=== PATIENT | male | born 1970 | race Caucasian/White ===

== ENCOUNTER 2018-03-02 17:51 | Observation (INO) | payer BC ==
[~2018-03-02] VITALS: Ht 182.9 cm; Wt 94.8 kg
[2018-03-02 18:33] LABS: BASOPHILS % 0.2 % (0.0-1.0); EOSINOPHILS % 0.3 % (0.0-6.0); HEMATOCRIT 44.1 % (38.2-49.6); HEMOGLOBIN 15.6 g/dL (14.0-18.0); LYMPHOCYTES # (AUTO) 2.1 (1.0-3.2); LYMPHOCYTES % 16.3 % (18.0-39.1); MEAN CORPUSCULAR HEMOGLOBIN 29.1 pg (28-32); MEAN CORPUSCULAR HGB CONC 35.4 g/dL (31-35); MEAN CORPUSCULAR VOLUME 82.1 fL (81-99); MONOCYTES # (AUTO) 0.7 (0.2-0.8); MONOCYTES % 5.6 % (4.4-11.3); NEUTROPHILS # (AUTO) 9.9 (2.1-6.9); NEUTROPHILS % 77.3 % (38.7-80.0); PLATELET COUNT 156 x10e3/uL (140-360); RED BLOOD COUNT 5.37 x10e6/uL (4.3-5.7); RED CELL DISTRIBUTION WIDTH 13.2 % (11.7-14.4)
[2018-03-02] MEDS ORDERED: ONDANSETRON HCL INJ 2 MG/ML VIAL IV PRN (18:45)
[2018-03-02] MEDS ORDERED: DEXTROSE 50% SYRINGE 50 ML IV PRN (18:45)
[2018-03-02 18:50] LABS: ALANINE AMINOTRANSFERASE 29 IU/L (0-55); ALBUMIN 3.5 g/dL (3.5-5.0); ALBUMIN/GLOBULIN RATIO 0.8 (0.8-2.0); ALKALINE PHOSPHATASE 81 IU/L (40-150); ANION GAP 15.2 mmol/L (8-16); BLOOD UREA NITROGEN 15 mg/dL (7-26); BUN/CREATININE RATIO 14 (6-25); CALCIUM 9.4 mg/dL (8.4-10.2); CARBON DIOXIDE 26 mmol/L (22-29); CHLORIDE 97 mmol/L (98-107); CREATININE, SERUM 1.05 mg/dL (0.72-1.25); EST GLOMERULAR FILTRATION RATE > 60 ML/MIN (60-); GLUCOSE 234 mg/dL (74-118); POTASSIUM 4.2 mmol/L (3.5-5.1); SODIUM 134 mmol/L (136-145)
[2018-03-02 18:54] LABS: CLARITY,URINE CLEAR (CLEAR); COLOR,URINE YELLOW (YELLOW); KETONES,URINE NEGATIVE (NEGATIVE); LEUKOCYTE ESTERASE ,URINE NEGATIVE (NEGATIVE); NITRITE,URINE NEGATIVE (NEGATIVE); PROTEIN,URINE DIPSTICK 1+ (NEGATIVE)
[2018-03-02 18:55] LABS: BILIRUBIN,URINE NEGATIVE (NEGATIVE); URINE UROBILINOGEN 1 mg/dL (0.2 - 1)
[2018-03-02 19:05] LABS: MUCUS,URINE FEW (RARE)
[2018-03-02] MEDS: INSULIN REGULAR, HUMAN 100 UNIT/1 ML 3ML VIAL SQ SCH (21:00)
[2018-03-02] MEDS ORDERED: MORPHINE SULFATE INJ 4 MG/ML INJ ONE (22:26)
[2018-03-02] MEDS: PIPER-TAZ 3.375 GM / NS 50ML IV SCH (23:38)
[2018-03-02] MEDS: MORPHINE SULFATE 2 MG/ML SYR IV PRN (23:38)
[2018-03-03] VITALS (7 sets, daily range): BP systolic 120–144; BP diastolic 65–80
[2018-03-03] MEDS ORDERED: CRESTOR10 MG PO (01:47)
[2018-03-03] MEDS ORDERED: Trulicity SQ (01:47)
[2018-03-03] MEDS ORDERED: LISINOPRIL10 MG PO (01:47)
[2018-03-03] MEDS ORDERED: HUMALOG100 UNIT/3 SC (01:47)
[2018-03-03] MEDS ORDERED: LANTUS 3ML100 UNITS/ SQ (01:47)
[2018-03-03] MEDS: PIPER-TAZ 3.375 GM / NS 50ML IV SCH ×3 (06:00→21:53)
[2018-03-03] MEDS ORDERED: BUPIVACAINE HCL 0.5% INJ 30 ML VIAL INJ ONE (06:49)
--- NOTE | 2018-03-03 06:53 | Consultation ---
DATE OF CONSULTATION: March 03, 2018 Patient is a 47-year-old male who presents with complaints of right lower quadrant abdominal pain. He has had some pain for a couple of months, but it became worse 3 days ago. He had a loss of appetite with nausea, but no vomiting. He had an outpatient CT of the abdomen, which reveals findings suggestive of acute appendicitis. PAST MEDICAL HISTORY: Significant for diabetes, hyperlipidemia, mild hypertension. MEDICATIONS: At home were acebutolol, Tylenol No. 3, losartan, lovastatin, as well as insulin. ALLERGIES: HE HAS NO KNOWN ALLERGIES. PAST SURGICAL HISTORY: He has not had previous surgery. FAMILY HISTORY: Noncontributory. SOCIAL HISTORY: The patient does not smoke cigarettes or drink alcohol. REVIEW OF SYSTEMS: As stated above, otherwise was negative. PHYSICAL EXAMINATION GENERAL: The patient is awake and alert, and in no distress. VITAL SIGNS: Normal. HEENT: Reveals no scleral icterus. NECK: Has no masses. LUNGS: Equal breath sounds are clear bilaterally. CARDIAC: Regular rate and rhythm. Normal S1 and S2 without murmur, S3 or S4. There is no jugular venous distention. ABDOMEN: Tender in the right lower quadrant with questionable signs of peritonitis localized in the right lower quadrant. There is no mass. EXTREMITIES: No edema. Peripheral pulses are palpable. NEUROLOGIC: Intact. ASSESSMENT: A 47-year-old male with acute appendicitis now admitted to the hospital. PLAN: Laparoscopic appendectomy. Procedure was explained to the patient, including risks, benefits and alternatives. He understands the procedure. He has had the opportunity to ask questions. He is aware of the possible need for open surgery. Thank you for asking me to see Mr. Hamilton. Job#: [id number] OR
[2018-03-03] MEDS: INSULIN REGULAR, HUMAN 100 UNIT/1 ML 3ML VIAL SQ SCH ×4 (07:30→21:00)
--- NOTE | 2018-03-03 07:47 | History and Physical ---
HISTORY: This is a 47-year-old gentleman who came in yesterday to the clinic with right lower quadrant pain, had fever about 3 days ago and had some swelling and was not able to intake any p.o. The patient had some nausea along with that. A stat CT was done. The patient was found to have appendicitis, sent to the emergency room and the patient was admitted for appendicitis and has been taken to the OR today. PAST MEDICAL HISTORY: History of diabetes mellitus, history of hypertension, history of hyperlipidemia. MEDICINES: He takes at home at insulin glargine 8 units subcutaneously 3 times a day. He also takes lisinopril 10 mg daily, rosuvastatin 10 mg at nighttime and Trulicity 1.5 mg subcutaneously q.8. SURGICAL HISTORY: None. FAMILY HISTORY: Contributory for diabetes and hypertension. SOCIAL HISTORY: No EtOH. No IV drug abuse. REVIEW OF SYSTEMS: Negative for chest pain. No shortness of breath. Positive for nausea and vomiting. No diarrhea, constipation or rectal bleeding. No hematochezia. No hematemesis. Positive for right lower quadrant abdominal pain. No blurry vision or diplopia. EXAMINATION GENERAL: The patient is alert and oriented times 3. VITAL SIGNS: Temperature is 99.7, pulse is 57, respiratory rate of 18, blood pressure is 130/70. HEENT: Normocephalic, atraumatic. Pupils reactive to light and accommodation. CVS: S1, S2 normal. Regular rate and rhythm. ABDOMEN: Tender in the right lower quadrant. No rebound. EXTREMITIES: No clubbing, no cyanosis, no edema. LABORATORY VALUES: White count is 12,000 with left shift. The patient's chemistry, sodium was 134, potassium was 4.3, BUN of 15, creatinine of 1.05 and glucose was 195. ASSESSMENT: Acute appendicitis. The patient has been taken down to operative room. Will have laparoscopic appendectomy. Further care to follow. Continue on the Zosyn. Will follow up with surgeon postsurgically. Will continue on his home medications for his diabetes, hypertension and hyperlipidemia. Job#: [id number]
[2018-03-03] MEDS ORDERED: DEXTROSE 5%/0.45% SOD CHL 1,000 ML IV SCH (07:54)
[2018-03-03] MEDS ORDERED: ONDANSETRON HCL INJ 2 MG/ML VIAL IV PRN (08:00)
[2018-03-03] MEDS ORDERED: MORPHINE SULFATE 5 MG/ML VIAL IV PRN (08:00)
[2018-03-03] MEDS ORDERED: HYDROMORPHONE 1MG/1ML INJ ONE (08:27)
--- NOTE | 2018-03-03 08:53 | Operative Report ---
DATE OF PROCEDURE: March 03, 2018 PREOPERATIVE DIAGNOSIS: Acute appendicitis. POSTOPERATIVE DIAGNOSES: Acute appendicitis with gangrenous appendicitis. PROCEDURES: 1. Diagnostic laparoscopy. 2. Laparoscopic appendectomy. SECURITY ASSISTANT: None. ANESTHESIA: General endotracheal. INDICATIONS AND FINDINGS: The patient is a 47-year-old male who presented with complaints of abdominal pain, localized to right lower quadrant which he has had for 3 days. At surgery, the patient was found to have an acutely inflamed appendix with areas of gangrene. TECHNIQUE: After adequate general endotracheal anesthesia with patient in supine position, the abdomen was prepped and draped in sterile fashion with [place] solution. The skin in the umbilicus was infiltrated with 0.5% Marcaine. Incision made in the umbilicus. Abdominal wall was elevated and Veress needle was introduced. Pneumoperitoneum was then created. A 10-mm trocar and cannula was then passed through the umbilical wound. Laparoscopic camera was introduced. Initial laparoscopy revealed inflammatory process in right lower quadrant. A 12-mm trocar and cannula was placed suprapubically and a 5-mm trocar and cannula placed in right upper quadrant. These were placed under direct vision. Terminal ileum was adherent over an acutely inflamed appendix. There were fibrinous adhesions which were broken up exposing the appendix. Appendix was inflamed with area of gangrene on the mid portion of the appendix. The base of the appendix identified. A window was created between the base of the appendix and mesoappendix. The base of the appendix was divided close to the cecum with Endo POOJA stapler. Mesoappendix also divided with Endo POOJA stapler and Hemoclips freeing the appendix completely. Appendix was placed into an Endopouch and brought out through the suprapubic cannula. Care was taken that it did not touch the abdominal wall. Area of the appendectomy was inspected for hemostasis, which was seen to be adequate. It was irrigated with saline. All fluid aspirated and inspected once again for hemostasis which was seen to be adequate. Instruments and cannulas were then removed. Pneumoperitoneum was evacuated. Wounds were then closed, fascia in the umbilical and suprapubic wound closed with #0 Vicryl. Skin to all wounds closed with ashley. Sterile dressings applied to each wound. The patient tolerated the procedure well. Estimated blood loss was 20 mL. There were no complications. All counts were correct. Patient was taken to the recovery room in satisfactory condition. Job#: [id number] cc:LISBETH GONZALEZ MD
[2018-03-03] MEDS: SODIUM CHLORIDE 0.9% 1000ML 1,000 ML IV SCH ×2 (09:29→16:59)
[2018-03-03] MEDS: MORPHINE SULFATE 2 MG/ML SYR IV PRN (09:45)
[2018-03-03] MEDS: HYDROCODONE/APAP 5MG-325MG TAB PO PRN ×2 (12:35→21:37)
[2018-03-03] MEDS ORDERED: KETOROLAC TROMETHAMINE 30 MG/ML VIAL ONE (14:25)
[2018-03-03] MEDS ORDERED: ROCURONIUM BROMIDE 10 MG/ML 5ML VIAL ONE (14:25)
[2018-03-03] MEDS ORDERED: NEOSTIGMINE 5 MG/5ML SYR ONE (14:25)
[2018-03-03] MEDS ORDERED: LIDOCAINE HCL 2% LOCAL INJ 5 ML SDV VIAL INJ ONE (14:25)
[2018-03-03] MEDS ORDERED: SEVOFLURANE INHAL SOLN 250 ML PEN BTL ONE (14:25)
[2018-03-03] MEDS ORDERED: DEXAMETHASONE SOD PHOS INJ 4 MG/ML VIAL ONE (14:25)
[2018-03-03] MEDS ORDERED: PROPOFOL IV EMULSION 10 MG/ML 20 ML VIAL ONE (14:25)
[2018-03-03] MEDS ORDERED: ONDANSETRON HCL INJ 2 MG/ML VIAL ONE (14:25)
[2018-03-03] MEDS ORDERED: GLYCOPYRROLATE INJ 1MG/ 5 ML SYR ONE (14:25)
[2018-03-03] MEDS ORDERED: FENTANYL CITRATE/PF 100MCG/2 ML INJ ONE (15:10)
[2018-03-03] MEDS ORDERED: MIDAZOLAM HCL 2 MG/2 ML VIAL ONE (15:10)
[2018-03-03] MEDS ORDERED: MORPHINE SULFATE INJ 4 MG/ML INJ IV PRN ×2 (17:00)
[2018-03-03] MEDS ORDERED: SIMVASTATIN 40 MG TAB PO SCH (21:00)
[2018-03-03] MEDS: SIMVASTATIN 20 MG TAB PO SCH (21:00)
[2018-03-03] MEDS: INSULIN DETEMIR 100 UNIT/ML PEN SQ SCH (21:00)
[2018-03-04] VITALS: BP 137/74
[2018-03-04 04:00] VITALS: BP 131/70
[2018-03-04] MEDS: SODIUM CHLORIDE 0.9% 1000ML 1,000 ML IV SCH ×3 (04:00→21:10)
[2018-03-04] MEDS: PIPER-TAZ 3.375 GM / NS 50ML IV SCH ×3 (06:00→21:10)
[2018-03-04 06:02] LABS: BASOPHILS % 0.1 % (0.0-1.0); EOSINOPHILS # (AUTO) 0.1 (0.0-0.4); EOSINOPHILS % 1.6 % (0.0-6.0); HEMOGLOBIN 12.7 g/dL (14.0-18.0); LYMPHOCYTES # (AUTO) 1.7 (1.0-3.2); LYMPHOCYTES % 23.3 % (18.0-39.1); MEAN CORPUSCULAR HEMOGLOBIN 29.1 pg (28-32); MEAN CORPUSCULAR HGB CONC 34.3 g/dL (31-35); MEAN CORPUSCULAR VOLUME 84.9 fL (81-99); MONOCYTES # (AUTO) 0.7 (0.2-0.8); MONOCYTES % 8.9 % (4.4-11.3); NEUTROPHILS # (AUTO) 4.8 (2.1-6.9); PLATELET COUNT 126 x10e3/uL (140-360); RED BLOOD COUNT 4.36 x10e6/uL (4.3-5.7); RED CELL DISTRIBUTION WIDTH 13.5 % (11.7-14.4)
[2018-03-04 06:21] LABS: ANION GAP 11.5 mmol/L (8-16); BLOOD UREA NITROGEN 13 mg/dL (7-26); BUN/CREATININE RATIO 13 (6-25); CALCIUM 8.6 mg/dL (8.4-10.2); CARBON DIOXIDE 29 mmol/L (22-29); CHLORIDE 102 mmol/L (98-107); CREATININE, SERUM 0.97 mg/dL (0.72-1.25); EST GLOMERULAR FILTRATION RATE > 60 ML/MIN (60-); GLUCOSE 186 mg/dL (74-118); POTASSIUM 4.5 mmol/L (3.5-5.1); SODIUM 138 mmol/L (136-145)
[2018-03-04] MEDS: LISINOPRIL 10 MG TAB PO SCH (07:59)
[2018-03-04] MEDS: INSULIN REGULAR, HUMAN 100 UNIT/1 ML 3ML VIAL SQ SCH ×4 (08:00→21:00)
[2018-03-04] MEDS: HYDROCODONE/APAP 5MG-325MG TAB PO PRN ×3 (08:16→20:17)
[2018-03-04 08:23] VITALS: BP 134/68
[2018-03-04 11:47] VITALS: BP 143/73
[2018-03-04 16:41] VITALS: BP 122/56
[2018-03-04 20:00] VITALS: BP 128/70
[2018-03-04] MEDS: SIMVASTATIN 20 MG TAB PO SCH (20:20)
[2018-03-04] MEDS: INSULIN DETEMIR 100 UNIT/ML PEN SQ SCH (21:09)
[2018-03-05] VITALS: BP 155/64
[2018-03-05 04:00] VITALS: BP 134/76
[2018-03-05] MEDS: PIPER-TAZ 3.375 GM / NS 50ML IV SCH (05:10)
[2018-03-05] MEDS: INSULIN REGULAR, HUMAN 100 UNIT/1 ML 3ML VIAL SQ SCH ×2 (07:30→11:36)
[2018-03-05] MEDS: LISINOPRIL 10 MG TAB PO SCH (08:22)
[2018-03-05 08:38] VITALS: BP 151/81
[2018-03-05] MEDS: SODIUM CHLORIDE 0.9% 1000ML 1,000 ML IV SCH (09:41)
[2018-03-05] MEDS: HYDROCODONE/APAP 5MG-325MG TAB PO PRN (11:39)
[2018-03-05 11:57] VITALS: BP 152/75
[2018-03-05] MEDS ORDERED: LEVAQUIN500 MG PO (15:16)
[2018-03-05] MEDS ORDERED: ULTRAM50 MG PO (15:16)
== END 2018-03-05 16:05 | disposition home or self-care (01) ==
LOC: ER 17:51 → ERHOLD 22:31 → IMCU 23:45
PROVIDERS: ADMIT Family Medicine; ATTEND Family Medicine
DX: K35.3 Acute appendicitis with localized peritonitis (principal); I10 Essential (primary) hypertension; E78.5 Hyperlipidemia, unspecified; Z87.891 Personal history of nicotine dependence; E87.1 Hypo-osmolality and hyponatremia; E11.65 Type 2 diabetes mellitus with hyperglycemia; Z79.4 Long term (current) use of insulin
CPT/HCPCS: 36415 ×4; 44970; 80048; 80053; 81001; 82948 ×4; 85025 ×2; 88304; 96367; 96372; 99284; G0378 ×4; J1100; J1170; J1885; J2001; J2250; J2270 ×3; J2405 ×2; J2543 ×4; J3490; J7030 ×3